=== PATIENT | male | born 2005 | race African-American/Black ===

== ENCOUNTER 2024-04-07 01:53 | Emergency (ER) | payer OTHER, SELFPAY ==
[2024-04-07 01:55] VITALS: BP 108/75
--- NOTE | 2024-04-07 02:49 | DOWNTIME ---
There was a [employer] Therapist Downtime on 04/07/2024 from 0100 to 04/07/2023 at 0235 . Downtime documentation of patient's care, including medication administrations, has been reconciled in the electronic record per guidelines. Refer to the
patient's paper chart under the miscellaneous tab to see printed paper medication records and downtime forms.
[2024-04-07 03:15] LABS: Amphetamines Negative (Negative); Barbiturates Negative (Negative); Benzodiazepines Negative (Negative); Buprenorphine Negative (Negative); Cocaine Negative (Negative); Marijuana Positive (Negative); Methadone Negative (Negative); Methamphetamines Negative (Negative); Opiates Negative (Negative); Phencyclidine Negative (Negative); Tricyclic Antidepressants Negative (Negative)
[2024-04-07 05:20] LABS: % Basophils 0.6 % (0-2); % Eosinophils 6.2 % (0-6); % Immature Granulocytes 0.1 % (0-0.5); % Lymphocytes 41.6 % (20.5-51.1); % Monocytes 6.3 % (1.7-9.3); % Neutrophils 45.2 % (42.2-75.2); Absolute Eosinophils 0.4 10^3/uL (0-0.7); Absolute Lymphocytes 2.9 10^3/uL (1.2-3.4); Absolute Monocytes 0.4 10^3/uL (0.1-0.6); Absolute Neutrophils 3.2 10^3/uL (1.4-6.5); Hematocrit 38.6 % (39.0-52.0); Hemoglobin 13.2 g/dL (13.0-18.0); Mean Corp Hgb Conc. 34.2 g/dL (33.0-37.0); Mean Corpuscular Hgb 30.1 pg (27.0-31.0); Mean Corpuscular Volume 88.1 fL (80.0-94.0); Mean Platelet Volume 10.3 fL (7.4-10.4); Nucleated Red Blood Cells % 0 % (-); Platelet Count 274 10^3/uL (130-400); Red Blood Cell Count 4.38 10^6/uL (4.70-6.10); Red Cell Dist. Width 11.9 % (11.5-14.5)
[2024-04-07 05:53] LABS: ALT (SGPT) 15 U/L (0-50); AST (SGOT) 24 U/L (17-59); Albumin 4.2 g/dl (3.5-5.0); Alkaline Phosphatase 82 U/L (38-126); Blood Urea Nitrogen 15 mg/dl (9-20); Calcium 9.1 mg/dl (8.4-10.2); Carbon Dioxide 25 mmol/L (22-30); Chloride 104 mmol/L (98-107); Glucose 95 mg/dl (70-99); Potassium 4.6 mmol/L (3.5-5.1); Sodium 140 mmol/L (135-145); Total Bilirubin 0.6 mg/dl (0.2-1.3); Total Protein 6.2 g/dl (6.3-8.2); eGFR > 60.00
--- NOTE | 2024-04-07 06:18 | ED.GENMED ---
History of Present Illness
General
Chief Complaint: Change in Mental Status
Source: patient
Exam Limitations: none
Time Seen by Provider: 04/07/24 06:12
Nursing documentation reviewed up to this point in time: agreed with
History of Present Illness
History of Present Illness:
17-year-old male presents emergency ferment due to a 'mental breakdown'. He states his mother said she was going to fill out a 302, so he ran out of the house, and states he hurt his right foot. He did not fall. He states he locked himself in a
closet, had what he terms a seizure, and took a nap in the closet.
Past History
Past History
ED Past Medical History: Psychiatric (ADHD, depression, PTSD)
ED Past Surgical History: Appendectomy
Social History
Tobacco: Non-smoker
Alcohol: None
Drug: Marijuana
Living: with family
Review of Systems
Review of Systems
Allergies reviewed?: Yes
All Other Systems: Not applicable
Constitutional: Reports no symptoms
EENT: Reports no symptoms
Respiratory: Reports no symptoms
Cardiac: Reports no symptoms
ABD/GI: Reports no symptoms
: Reports no symptoms
Musculoskeletal: Reports no symptoms
Skin: Reports no symptoms
Neurological: Reports no symptoms
Endocrine: Reports no symptoms
Hematologic/Lymphatic: Reports no symptoms
Psychiatric: Reports anxiety
Phy Exam
Physical Exam
Physical Exam:
Physical Exam
General: no apparent distress, not acutely ill
Neck: supple. no meningeal signs. normal posterior pharynx
Heart: s1/s2 regular rate and rhythm, no murmur. equal radial
pulses.
HEENT: Pupils equal round reactive to light, EOMI
Lungs: no acute respiratory distress. clear bilaterally
Abdomen: normal bowel sounds. not tender. no CVAT
Neuro: alert and oriented. no focal neurological deficits cranial nerves II through XII intact
Skin: no rash
Psychiatric: well kept. interactive and cooperative
Extremities: no edema. no calf tenderness. negative homans. good distal pulses
Course
Orders/Labs/Results
Orders:
Orders
04/07/24 02:00
Urine Drug Abuse Screen Urgent
Date Specimen was Collected: 04/07/24
Time Specimen was Collected: 02:00
04/07/24 03:37
Crisis Consult Urgent
Reason for Consult: increased depression
04/07/24 05:08
CMP [Comprehensive Metabolic Panel] Urgent
Complete Blood Count/With Diff Urgent
04/07/24 06:18
Foot, Right 3 View [CR Foot - Right Min 3 Views] Urgent
Comment:
Reason For Exam: right foot pain after running
Abnormal Lab Results
04/07/24 04/07/24
02:00 05:08
RBC 4.38 L 10^6/uL
(4.70-6.10)
Hct 38.6 L %
(39.0-52.0)
Eosinophils % 6.2 H %
(0-6)
Total Protein 6.2 L g/dl
(6.3-8.2)
U Marijuana (THC) Screen Positive H
(Negative)
04/07/24 05:08
04/07/24 05:08
Vital Signs
Initial and Last Documented VS:
Initial Vital Signs
Temp Pulse Resp BP Pulse Ox
98.4 F 83 14 108/75 98
04/07/24 01:55 04/07/24 01:55 04/07/24 01:55 04/07/24 01:55 04/07/24 01:55
Last Documented Vital Signs
Temp Pulse Resp BP Pulse Ox
98.4 F 83 16 108/75 98
04/07/24 01:55 04/07/24 01:55 04/07/24 06:12 04/07/24 01:55 04/07/24 01:55
MDM/Problems Addressed
Differential Diagnosis Includes:
Depression, anxiety
MDM/Problems Addressed:
18-year-old male with anxiety, depression. Patient accepted at [facility] for further treatment.
*Radiology
Radiology exam reviewed: preliminary read by ED provider (Right foot x-ray no fracture)
*Pulse Oximetry
Patient hypoxic: no
*Critical Care Note
Total Time (30-74mins, 75-104mins- exclusive of procedures): Not Applicable
Patient Management
Social determinants of health affecting care: Living situation and Strong social support
Escalation/DeEscalation of care consider admission/obs:
voluntary psychiatric hospitalization indicated
ED Attending Note
-
Portions of this chart may have been created with voice recognition software.� Occasional wrong word or��sound alike� substitutions may have occurred due to the inherent limitations of voice recognition software.
Discharge Plan
Departure
Patient Disposition: Psych Facility
Date of Disposition: 04/07/24
Time of Disposition: 08:36
Patient Status:: Psych
Patient with high blood pressure during this ER visit?: No
Condition: Good
Discharge Problem:
Depression, Right foot sprain
Referrals:
Armaan Timmons DO [Family Provider] -
Interventions
Interventions:
*Risk Screen - Suicide Last Done: 04/07/24 01:55
*Neglect/Abuse Screening Last Done: 04/07/24 01:55
ED- Fall Risk Assessment Last Done: 04/07/24 03:59
*ED COVID-19 Vaccine History Last Done: 04/07/24 04:01
ED- Neurological Assessment Last Done: 04/07/24 03:59
ED- Cardiac Assessment Last Done: 04/07/24 03:59
ED Swallowing Screen Last Done: 04/07/24 03:59
Discharge Date and Time
Print Language: SPANISH
[2024-04-07 15:37] VITALS: BMI 25.1
[2024-04-07] MEDS: NICODERM TRANSDERMAL 21 MG TRANSDERM (15:39)
--- NOTE | 2024-04-07 16:39 | CON.MD ---
Consultation - Medical
-
18 yr old M presenting with worsening depression, anxious distress & recent self harm. Pt reports increasing difficulty managing external stressors with concomitant worsening of mood - describes affective instability, reactivity and feelings of
distress. Prior to presenting to crisis locked himself into a closet as this can help him calm down when he is overwhelmed, likely due to lack of external stimulation allowing his senses to settle. He reports however that he suddenly started banging
his head against the wall, says he was trying to 'induce a pseudo seizure' - says this is not typical for him to do and he is scared of harming himself more.
Previously diagnosed with bipolar disorder & ADHD - currently prescribed Concerta, lamictal, guanfacine. Says that he does not think his medication is currently helping him as his mood is increasingly more unstable. Recently seeing a therapist as
part of a program but dropped out of it.
Bipolar d/o by hx
Also w/ self-reported hx of ADHD
MSE:,[cooperative],,speech is quiet,mood is depressed/distressed, affect is constricted,, thought process is logical & goal directed, thought content: denies SI/HI/AVH/delusions but w/ recent self harm & ongoing thoughts of self harm. AAOx3. Memory
not formally tested. Insight/judgement moderate to poor.
Pt does not currently feel safe with himself - recently self harmed and worried about hurting himself further. Is agreeable to voluntary inpatient admission at this time for safety & stabilization.
[2024-04-07 18:35] VITALS: BP 130/68
[2024-04-07] MEDS: NICORETTE 2 MG PO (23:00)
== END 2024-04-07 23:00 ==
LOC: EMR 01:53
PROVIDERS: Student in an Organized Health Care Education/Training Program; EMERGENCY PHYSICIAN Emergency Medicine; FAMILY PHYSICIAN Pediatrics
DX: F32.A Depression, unspecified (principal); S93.601A Unspecified sprain of right foot, initial encounter; Y93.02 Activity, running; F90.9 Attention-deficit hyperactivity disorder, unspecified type; F41.8 Other specified anxiety disorders; F43.10 Post-traumatic stress disorder, unspecified; Z90.49 Acquired absence of other specified parts of digestive tract
CPT/HCPCS: 99283; 73630; 80053; 80306; 85025